=== PATIENT | male | born 1985 | race Caucasian/White ===

== ENCOUNTER 2018-01-25 23:32 | Emergency (ER) | payer MEDICAID, OTHER ==
[~2018-01-25] VITALS: Ht 177.8 cm; Wt 64.0 kg
[2018-01-26 04:51] LABS: BASOPHILS % 0.9 % (0.0-2.0); EOSINOPHILS % 6.1 % (0.0-5.0); HEMATOCRIT. 39.8 % (42.0-52.0); HEMOGLOBIN. 13.7 g/dL (14.0-18.0); LYMPHOCYTES % 35.1 % (20.0-50.0); MEAN CORPUSCULAR HEMOGLOBIN 30.2 pg (28.0-32.0); MEAN CORPUSCULAR VOLUME 87.5 fL (80.0-94.0); MEAN PLATELET VOLUME 10.5 fl (7.4-10.4); MONOCYTES % 8.9 % (2.0-8.0); PLATELET 148 x1000/uL (130-400); RED BLOOD CELL COUNT 4.55 mill/uL (4.7-6.1); RED CELL DISTRIBUTION WIDTH 11.9 % (11.6-14.6)
[2018-01-26 05:02] LABS: CHLORIDE 108 mEq/L (98-107); ETHANOL BLOOD < 10 mg/dL
[2018-01-26 06:05] LABS: CLARITY URINE CLEAR (CLEAR); COLOR URINE YELLOW (YELLOW); KETONES URINE TRACE (NEGATIVE); LEUKOCYTE ESTERASE URINE NEGATIVE (NEGATIVE); NITRITE URINE NEGATIVE (NEGATIVE); OCCULT BLOOD URINE NEGATIVE (NEGATIVE); PH URINE 5.5 (4.5-8.0); PROTEIN URINE NEGATIVE (NEGATIVE); SPECIFIC GRAVITY URINE 1.022 (1.005-1.030); UROBILINOGEN URINE 0.2 E.U./dL (0.2-1.0)
[2018-01-26 06:20] LABS: *AMPHETAMINES SCREEN URINE NEGATIVE (NEGATIVE); *BARBITURATES SCREEN URINE NEGATIVE (NEGATIVE); *BENZODIAZEPINES SCREEN URINE NEGATIVE (NEGATIVE); *COCAINE SCREEN URINE NEGATIVE (NEGATIVE); CANNABINOID URINE SCREEN NEGATIVE (NEGATIVE); METHADONE URINE SCREEN NEGATIVE (NEGATIVE); OPIATES URINE SCREEN NEGATIVE (NEGATIVE); PHENCYCLIDINE URINE SCREEN NEGATIVE (NEGATIVE)
[2018-01-26 20:22] VITALS: BP 119/82
== END 2018-01-26 21:08 ==
LOC: ER 23:32
DX: F32.9 Major depressive disorder, single episode, unspecified (principal); F20.9 Schizophrenia, unspecified
CPT/HCPCS: 36415; 80053; 80305; 80307; 80329; 81003; 85025; 99285; G0482; 99284

== ENCOUNTER 2018-03-03 05:39 | Emergency (ER) | payer MEDICAID, OTHER | END 2018-03-03 05:53 | disposition left against medical advice (07) | LOC: ER 05:39 | DX: Z00.8 Encounter for other general examination (principal); Z53.21 Procedure and treatment not carried out due to patient leaving prior to being seen by health care provider ==

== ENCOUNTER 2018-03-04 09:18 | Emergency (ER) | payer OTHER ==
[~2018-03-04] VITALS: Ht 177.8 cm; Wt 73.0 kg
[2018-03-04] MEDS ORDERED: IBUPROFEN 600MG TABLET PO ONE (10:45)
[2018-03-04 10:54] VITALS: BP 122/77
== END 2018-03-04 11:50 | disposition home or self-care (01) ==
LOC: ER 09:38
DX: G93.40 Encephalopathy, unspecified (principal); G89.29 Other chronic pain; M54.5 Low back pain; F20.9 Schizophrenia, unspecified; F32.9 Major depressive disorder, single episode, unspecified; F14.10 Cocaine abuse, uncomplicated; F12.10 Cannabis abuse, uncomplicated; F11.10 Opioid abuse, uncomplicated; F15.10 Other stimulant abuse, uncomplicated; F16.10 Hallucinogen abuse, uncomplicated
CPT/HCPCS: 99283

== ENCOUNTER 2018-03-14 23:46 | Emergency (ER) | payer OTHER ==
[~2018-03-14] VITALS: Ht 177.8 cm; Wt 69.0 kg
[2018-03-15] MEDS ORDERED: ACETAMINOPHEN 325MG TABLET PO ONE (04:30)
[2018-03-15] MEDS ORDERED: IBUPROFEN 400MG TABLET PO ONE (04:30)
[2018-03-15 05:08] VITALS: BP 102/63
== END 2018-03-15 05:33 | disposition home or self-care (01) ==
LOC: ER 23:46
DX: F20.9 Schizophrenia, unspecified (principal); M54.5 Low back pain; F32.9 Major depressive disorder, single episode, unspecified; F17.200 Nicotine dependence, unspecified, uncomplicated; F12.10 Cannabis abuse, uncomplicated; F15.10 Other stimulant abuse, uncomplicated; F11.10 Opioid abuse, uncomplicated
CPT/HCPCS: 99284

== ENCOUNTER 2018-08-21 16:24 | Emergency (ER) | payer OTHER ==
[~2018-08-21] VITALS: Ht 177.8 cm; Wt 64.0 kg
[2018-08-21] MEDS ORDERED: IBUPROFEN 600MG TABLET PO ONE (21:15)
[2018-08-21] MEDS ORDERED: CEPHALEXIN 500MG CAPSULE PO ONE (21:15)
[2018-08-21 21:46] VITALS: BP 122/72
== END 2018-08-21 21:56 | disposition home or self-care (01) ==
LOC: ER 16:56
DX: L97.421 Non-pressure chronic ulcer of left heel and midfoot limited to breakdown of skin (principal); L97.411 Non-pressure chronic ulcer of right heel and midfoot limited to breakdown of skin; R23.8 Other skin changes; G89.29 Other chronic pain; M54.5 Low back pain; R03.0 Elevated blood-pressure reading, without diagnosis of hypertension; F20.9 Schizophrenia, unspecified; F32.9 Major depressive disorder, single episode, unspecified; F12.10 Cannabis abuse, uncomplicated; F17.200 Nicotine dependence, unspecified, uncomplicated; F15.10 Other stimulant abuse, uncomplicated; F16.10 Hallucinogen abuse, uncomplicated
CPT/HCPCS: 99283

== ENCOUNTER 2018-09-18 03:33 | Emergency (ER) | payer OTHER ==
[~2018-09-18] VITALS: Ht 180.3 cm; Wt 64.0 kg
[2018-09-18] MEDS ORDERED: KETOROLAC 30MG/ML VIAL IM ONE (06:45)
[2018-09-18 07:04] LABS: *AMPHETAMINES SCREEN URINE NEGATIVE (NEGATIVE); *BARBITURATES SCREEN URINE NEGATIVE (NEGATIVE); *BENZODIAZEPINES SCREEN URINE NEGATIVE (NEGATIVE)
[2018-09-18 07:05] LABS: *COCAINE SCREEN URINE NEGATIVE (NEGATIVE); CANNABINOID URINE SCREEN NEGATIVE (NEGATIVE); METHADONE URINE SCREEN NEGATIVE (NEGATIVE); OPIATES URINE SCREEN NEGATIVE (NEGATIVE); PHENCYCLIDINE URINE SCREEN NEGATIVE (NEGATIVE)
[2018-09-18 07:53] VITALS: BP 97/52
== END 2018-09-18 07:50 | disposition home or self-care (01) ==
LOC: ER 03:33
DX: M54.5 Low back pain (principal); F17.200 Nicotine dependence, unspecified, uncomplicated; F12.10 Cannabis abuse, uncomplicated; F14.10 Cocaine abuse, uncomplicated; F11.10 Opioid abuse, uncomplicated; F16.10 Hallucinogen abuse, uncomplicated
CPT/HCPCS: 80305; 96372; 99283; J1885